=== PATIENT | male | born 1970 | race African-American/Black ===

== ENCOUNTER → 2016-07-08 | Outpatient (CLI) | payer OTHER ==
[~2016-07-08] MED LIST: CIALIS5 MG PO; DESYREL 100MG100 MG PO; PROZAC 20MG20 MG PO; TOPAMAX15 MG PO; TYLENOL 325MG325 MG PO; ZOCOR5 MG PO
== END ==
LOC: COL.RAD 07:48
DX: R11.0 Nausea (principal); K58.9 Irritable bowel syndrome, unspecified; R14.0 Abdominal distension (gaseous)
CPT/HCPCS: A9541